=== PATIENT | male | born 1995 | race Two or more races ===

== ENCOUNTER 2021-01-16 19:37 | Emergency (ER) | payer OTHER, SELFPAY ==
[2021-01-16 19:38] VITALS: BP 143/80; PULSE 75; RESP 18; TEMP 36.4; O2SAT 96; BMI 26.6
--- NOTE | 2021-01-16 20:01 | CT_ITS ---
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 Radiation optimization: All CT scans at this facility use at least one of these dose optimization techniques: automated exposure control; mA and/or kV adjustment per patient size (includes targeted exams where dose is matched to clinical indication); or iterative reconstruction. Contrast material: ISOVUE; Contrast volume: 75 ml; Contrast route: IV; COMPARISON: No relevant prior studies available. FINDINGS: Tubes, catheters and devices: None noted. Lungs: Lung bases appear clear. Heart: No significant coronary calcifications. No cardiomegaly. No significant pericardial effusion. Liver: Normal. No mass. Gallbladder and bile ducts: Normal. No calcified stones. No ductal dilation. Pancreas: Normal. No ductal dilation. Spleen: Normal. No splenomegaly. Adrenal glands: Normal. No mass. Kidneys and ureters: Normal. No hydronephrosis. Stomach and bowel: Unremarkable. No obstruction. No mucosal thickening. Appendix: No evidence of appendicitis. Intraperitoneal space: Unremarkable. No free air. No significant fluid collection. Retroperitoneal space: No significant retroperitoneal inflammatory changes are noted. Vasculature: Unremarkable. No abdominal aortic aneurysm. Lymph nodes: Unremarkable. No enlarged lymph nodes. Urinary bladder: Unremarkable as visualized. Reproductive: Unremarkable as visualized. Bones/joints: Unremarkable. No acute fracture. Soft tissues: Unremarkable. IMPRESSION: No acute findings.
[2021-01-16 20:17] LABS: Basophils % 0.4 % (0.1-2.0); Eosinophils # 0.1 K/mm3 (0.0-0.4); Eosinophils % 0.7 % (0.1-12.0); Hemoglobin 14.8 g/dL (14.1-18.0); Lymphocytes # 1.6 K/mm3 (0.7-4.5); Mean Corpuscular HGB Conc 34.4 g/dL (31.8-35.4); Mean Corpuscular Hemoglobin 29.2 pg (27.0-31.2); Mean Corpuscular Volume 84.9 fl (80-94); Mean Platelet Volume 7.8 fl (7.4-10.4); Monocytes # 0.3 K/mm3 (0.1-1.0); Monocytes % 2.7 % (1.7-9.3); Neutrophils # 7.8 K/mm3 (1.8-7.8); Neutrophils % 80.1 % (37.0-80.0); Platelet Count 274 K/mm3 (142-424); Red Blood Count 5.06 M/mm3 (4.60-6.20); Red Cell Distribution Width 13.2 % (11.5-17.5); White Blood Count 9.8 K/mm3 (4.8-10.8)
[2021-01-16 20:24] LABS: Alanine Aminotransferase 51 U/L (12-78); Albumin Level 5.4 g/dl (3.5-5.0); Albumin/Globulin Ratio 1.6 (1.1-1.8); Alkaline Phosphatase 61 U/L (38-126); Amylase 73 U/L (30-110); Anion Gap 19.3 mEq/L (5-15); Aspartate Amino Transferase 39 U/L (17-59); Bilirubin,Total 0.4 mg/dl (0.2-1.3); Blood Urea Nitrogen 19 mg/dl (9-20); Carbon Dioxide 26 mmol/L (22.0-30.0); Chloride 103 mmol/L (98-107); Creatinine Clearance Estimated 104 mL/min (50-200); Estimated Glomerular Filt Rate 80 ml/min (>60); GFR (African American) 97 ML/MIN (>60); Globulin 3.4 g/dL (1.3-3.2); Glucose 133 mg/dl (74-100); Lipase 72 U/L (23-300); Potassium 4.3 mmoL/L (3.5-5.1); Sodium 144 mmol/L (136-145); Total Protein,Serum 8.8 g/dl (6.3-8.2)
[2021-01-16 20:28] LABS: Microscopic, Urine URINE MICROSCOPIC (MICROSCOPIC)
[2021-01-16 20:29] LABS: Appearance,Urine CLEAR (Clear); Bilirubin,Urine Negative (Negative); Blood, Urine Negative (Negative); Color,Urine YELLOW (Yellow); Glucose,Urine (UA) Negative (Negative); Ketones,Urine Negative (Negative); Leukocyte Esterase,Urine Negative (Negative); Nitrate,Urine Negative (Negative); Protein,Urine TRACE (Negative); Specific Gravity, Urine >= 1.030 (1.005-1.030); Urobilinogen,Urine 0.2 EU/dl (0.2)
[2021-01-16 20:29] LABS: C-Reactive Protein 1.6 mg/L (0-4)
[2021-01-16 20:32] LABS: Amorphous Sediment,Urine 1+ /lpf; Mucus,Urine 4+ /lpf; Squamous Epithelial Cell,Urine Occasional #/hpf (0-5)
[2021-01-16 20:41] LABS: Erythrocyte Sedimentation Rate 11 mm/hr (0-15)
[2021-01-16 20:43] LABS: Procalcitonin 0.051 ng/mL (0.0-2.0)
--- NOTE | 2021-01-16 20:45 | [facility].EDNVD ---
ED Disposition Clinical Impression: Abdominal pain Qualifiers: Abdominal location: right upper quadrant Qualified Code(s): R10.11 - Right upper quadrant pain Disposition: Home, Self-Care Condition on Discharge: Good Instructions: DI for Acute Abdominal Pain Additional Instructions: fluids and see pcp for follow up Referrals: Provider,Referral, [Primary Care Provider] - - Critical Care Critical Care Time: No Attestation: On 01/16/21, the high probability of a clinically significant, sudden or life threatening deterioration of the following system(s) required my full and direct attention, intervention and personal management. The time I documented below is in addition to time spent performing reported procedures but includes the following listed in this critical care notation. Medical Decision Making - Medical Records Medical records reviewed: Yes: I reviewed the patient's medical records. - Angel Inquiry Pt receiving controlled substance: No Vital Signs: 01/16/21 19:38 Temperature 97.5 F L Temperature Source Oral Pulse Rate [Right] 75 Respiratory Rate 18 Blood Pressure [Right Arm] 143/80 H Blood Pressure Mean [Right Arm] 101 02 Sat by Pulse Oximetry 96 - Lab Data Lab results reviewed: Yes: I reviewed the patient's lab results. Lab Results 01/16/21 20:04: WBC 9.8, RBC 5.06, Hgb 14.8, Hct 43.0, MCV 84.9, MCH 29.2, MCHC 34.4, RDW 13.2, Plt Count 274, MPV 7.8, Neut % (Auto) 80.1 H, Lymph % (Auto) 16.0, [place] % (Auto) 2.7, Eos % (Auto) 0.7, Baso % (Auto) 0.4, Neut # (Auto) 7.8, Lymph # (Auto) 1.6, [place] # (Auto) 0.3, Eos # (Auto) 0.1, Baso # (Auto) 0.0, ESR 11 01/16/21 20:04: Sodium 144, Potassium 4.3, Chloride 103, Carbon Dioxide 26, Anion Gap 19.3 H, BUN 19, Creatinine 1.10, Estimated Creat Clear 104, Estimated GFR 80, Est GFR ( Amer) 97, Glucose 133 H, Calcium 10.0, Total Bilirubin 0.4, AST 39, ALT 51, Alkaline Phosphatase 61, C-Reactive Protein 1.6, Total Protein 8.8 H, Albumin 5.4 H, Globulin 3.4 H, Albumin/Globulin Ratio 1.6, Amylase 73, Lipase 72, Procalcitonin 0.051 01/16/21 20:21: Urine Color Yellow, Urine Appearance Clear, Urine pH 6.0, Ur Specific Penrose >= 1.030, Urine Protein Trace, Urine Glucose (UA) Negative, Urine Ketones Negative, Urine Blood Negative, Urine Nitrate Negative, Urine Bilirubin Negative, Urine Urobilinogen 0.2, Ur Leukocyte Esterase Negative, Urine WBC 3-5, Ur Squamous Epith Cells Occasional, Amorphous Sediment 1+, Urine Mucus 4+ Result diagrams: 01/16/21 20:04 01/16/21 20:04 Orders (Tests/Meds): ED MEDICATIONS Generic Name Dose Route Start Last Admin Trade Name Freq PRN Reason Stop Dose Admin Sodium Chloride 1,000 mls @ 999 mls/hr 01/16/21 20:15 01/16/21 20:13 Sod Chlor 0.9% 1000ml Bag IV 01/16/21 21:15 999 mls/hr .Q1H1M MALCOLM Administration Sodium Chloride 8 ml 01/16/21 20:03 Sodium Chloride 0.9% 10ml Vial IV 02/15/21 20:02 NEEDED PRN dilute pepcid Discontinued Medications Generic Name Dose Route Start Last Admin Trade Name Freq PRN Reason Stop Dose Admin Famotidine 20 mg 01/16/21 20:03 01/16/21 20:13 Famotidine 20mg/2ml Vial IV 01/16/21 20:04 20 mg ONCE ONE Administration Ketorolac Tromethamine 30 mg 01/16/21 20:03 01/16/21 20:13 Ketorolac 30mg/Ml Vial IV 01/16/21 20:04 30 mg ONCE ONE Administration Metoclopramide HCl 10 mg 01/16/21 20:03 01/16/21 20:13 Metoclopramide Hcl 10mg/2ml Vial IVP 01/16/21 20:04 10 mg ONCE ONE Administration Ondansetron HCl 4 mg 01/16/21 20:03 01/16/21 20:13 Ondansetron 4mg/2ml Vial IV 01/16/21 20:04 4 mg ONCE ONE Administration - CT Data CT Scan: Abdomen, Pelvis Time Received: 21:[address] Reviewed: Yes: I have viewed the radiologist's interpretation Preliminary Findings: Normal/NAD Medical Decision Narrative: abd pain - nonspecific - stable labs and xray and exam Nausea/Vomiting/Diarrhea HPI - General Chief complaint: Abdominal Pa
[2021-01-16 22:05] VITALS: BP 134/78; PULSE 67; RESP 18; TEMP 36.4; O2SAT 96
== END 2021-01-16 22:06 | disposition home or self-care (01) ==
PROVIDERS: Emergency Provider Emergency Medicine
DX: T65.291A Toxic effect of other tobacco and nicotine, accidental (unintentional), initial encounter (principal)
CPT/HCPCS: 74177; 80053; 81001; 82150; 83690; 84145; 85025; 85651; 86140; 96365; 96375; 99283; J2405